=== PATIENT | female | born 1960 | race African-American/Black ===

== ENCOUNTER 2016-03-14 21:27 | Emergency (ER) | payer OTHER ==
[~2016-03-14] VITALS: Ht 160 cm; Wt 86.5 kg
[~2016-03-14 21:27] MED LIST: ASPI-535 PO; CHLO25TA13 PO; CYCL-319 PO; FAMO-18 PO; HYDR-3498 PO; IBUP800T25 PO; SUCR1TAB56 PO
[2016-03-14 21:32] VITALS: Ht 160 cm; Wt 86.5 kg
[2016-03-14] MEDS ORDERED: ONDANSETRON 4 MG INJ IV STA (23:55)
[2016-03-14] MEDS ORDERED: SOD CHLORIDE 0.9% 1,000 ML IV STA (23:55)
[2016-03-14] MEDS ORDERED: morphine 2 MG INJ IV STA (23:55)
[2016-03-15 00:36] LABS: BASOPHILS % 0.4 % (0.0-2.0); EOSINOPHILS # 0.3 10^3/ul (0.0-0.5); HEMATOCRIT 38.6 % (37.0-47.0); LYMPHOCYTES # 2.3 10^3/ul (0.8-2.9); LYMPHOCYTES % 34.9 % (15.0-51.0); MEAN CORPUSCULAR HEMOGLOBIN 29.9 pg (29.0-33.0); MEAN CORPUSCULAR HGB CONC 33.6 g/dl (32.0-37.0); MEAN PLATELET VOLUME 7.7 fl (7.4-10.4); MONOCYTE # 0.5 10^3/ul (0.3-0.9); MONOCYTES % 7.4 % (0.0-11.0); NEUTROPHIL # 3.5 10^3/ul (1.6-7.5); NEUTROPHILS % 53.3 % (39.0-77.0); PLATELET COUNT 251 10^3/UL (140-440); RED BLOOD COUNT 4.34 10^6/ul (4.20-5.40); RED CELL DISTRIBUTION WIDTH 14.3 % (11.5-14.5); UNCORRECTED WBC 6.6 10^3/ul (4.8-10.8); WHITE BLOOD COUNT 6.6 10^3/ul (4.8-10.8)
[2016-03-15 00:38] LABS: INR 0.91; PROTIME 12.3 Sec (12.2-14.2)
[2016-03-15 00:39] LABS: PARTIAL THROMBOPLASTIN TIME 24.1 Sec (25.0-35.0)
[2016-03-15] MEDS ORDERED: ACETAMINOPHEN 500 MG TAB PO STA (00:51)
--- NOTE | 2016-03-15 01:00 | RADRPT ---
PROCEDURE: Chest. CLINICAL INDICATION: Chest pain. TECHNIQUE: Single frontal view of the chest was obtained. COMPARISON: 12/27/2014. FINDINGS: The cardiac silhouette is within normal limits. The aortic arch is unremarkable. There is no focal consolidation, vascular congestion or pleural effusion. There is no pneumothorax. IMPRESSION: No evidence for active cardiopulmonary disease. .Adair Perez MD, Date Time Electronically viewed and signed by .Adair Perez MD, on 03/15/2016 01:00 .T/
[2016-03-15 01:01] LABS: CHLORIDE 102 mmol/L (97-110); SODIUM 147 mmol/L (135-144)
[2016-03-15 01:02] LABS: POTASSIUM 3.7 mmol/L (3.5-5.1)
[2016-03-15 01:04] LABS: ALANINE AMINOTRANSFERASE 43 IU/L (13-69); ALBUMIN/GLOBULIN RATIO 1.29; ALKALINE PHOSPHATASE 88 IU/L (42-121); ANION GAP 19 (8-16); ASPARTATE AMINO TRANSFERASE 26 IU/L (15-46); BILIRUBIN,INDIRECT 0.1 mg/dl (0-1.1); BILIRUBIN,TOTAL 0.1 mg/dl (0.2-1.3); BLOOD UREA NITROGEN 21 mg/dl (7-20); CARBON DIOXIDE 30 mmol/L (21-31); CREATININE 0.69 mg/dl (0.44-1.00); GLUCOSE 123 mg/dl (70-220); TOTAL PROTEIN 7.1 g/dl (6.1-8.1)
[2016-03-15 01:05] LABS: CALCIUM 9.1 mg/dl (8.4-10.2)
[2016-03-15 01:13] LABS: B-TYPE NATRIURETIC PEPTIDE 21 PG/ML (0-125); CONDITION 1
[2016-03-15 01:19] LABS: TROPONIN-I < 0.010 ng/ml (0.00-0.12)
[2016-03-15 01:28] LABS: ADD UMIC NO; URINE BILIRUBIN (Dip) NEGATIVE (NEGATIVE); URINE BLOOD (Dip) NEGATIVE (NEGATIVE); URINE COLOR LT. YELLOW (YELLOW); URINE GLUCOSE (Dip) NEGATIVE (NEGATIVE); URINE KETONES (Dip) NEGATIVE (NEGATIVE); URINE LEUKOCYTE ESTERASE (Dip) NEGATIVE (NEGATIVE); URINE NITRITE (Dip) NEGATIVE (NEGATIVE); URINE TOTAL PROTEIN (Dip) NEGATIVE (NEGATIVE); URINE UROBILINOGEN (Dip) 0.2 E.U./dL (0.1-1.0)
[2016-03-15] MEDS ORDERED: ALBUTEROL 0.5% (NEB) 2.5 MG/0.5 ML AMP HHN STA (01:39)
[2016-03-15] MEDS ORDERED: IPRATROPIUM (NEB) 0.5 MG/2.5 ML AMP HHN ONE (02:00)
[2016-03-15 02:42] VITALS: TEMP 98.2
[2016-03-15] MEDS ORDERED: DICLOFENAC SODIUM 37.5 MG/ML VIAL IV STA (03:06)
[2016-03-15] MEDS ORDERED: NAPR-688 PO (03:52)
[2016-03-15] MEDS ORDERED: AMOX500T PO (03:52)
[2016-03-15] MEDS ORDERED: AZIT500T5 PO (03:52)
[2016-03-15 04:11] VITALS: BP 133/70; PULSE 73; RESP 18
--- NOTE | 2016-03-15 04:13 | ERD ---
ER Documentation Chief Complaint Date/Time DATE: 03/15/16 TIME: 04:00 Chief Complaint sob, dizzy, abd pain, swelling x 1 day, no respiratory distress noted HPI This 55-year-old female presented for cough, shortness of breath with the cough , mild generalized crampy abdominal pain, bilateral forearm swelling. Dissolving going on for the last 3 days. She has had chills at home as well. Denies chest pain. Currently does not feel short of breath. No nausea or vomiting. ROS All systems reviewed and are negative except as per history of present illness. Medications Home Meds Active Scripts Amoxicillin Trihydrate (Amoxicillin) 500 Mg Tablet, 500 MG PO Q8, #30 TAB Prov:MADHUJOHANMARLENE DO 03/15/16 Naproxen* (Naproxen*) 500 Mg Tablet, 500 MG PO BID, #14 TAB Prov:MADHUMARLENE DO 03/15/16 Azithromycin* (Azithromycin*) 500 Mg Tablet, 500 MG PO DAILY, #3 TAB Prov:MARLENE LEUNG DO 03/15/16 Cyclobenzaprine Hcl* (Cyclobenzaprine Hcl*) 10 Mg Tablet, 15 MG PO TID, #15 TAB Prov:ANGEL LUIS LOPEZC 03/31/15 Ibuprofen* (Motrin*) 800 Mg Tab, 800 MG PO Q6H Y for PAIN AND OR ELEVATED TEMP, #30 TAB Prov:ANGEL LUIS LOPEZC 03/31/15 Hydrocodone Bit-Acetaminophen* ([place]*) 5-325 Mg Tab, 1 TAB PO Q4H Y for PAIN, # 20 TAB Prov:ANGEL LUIS LOPEZC 03/31/15 Sucralfate* (Carafate*) 1 Gm Tab, 1 GM PO AC MEALS AND BEDTIME for 10 Days, TAB Prov:CHELLY HOLT 12/27/14 Famotidine* (Pepcid*) 20 Mg Tablet, 20 MG PO BID for 4 Days, TAB Prov:CHELLY HOLT 12/27/14 Reported Medications Aspirin Ec (Aspir 81) 81 Mg Tablet.dr, 81 MG PO DAILY, TAB 12/27/14 Chlorthalidone* (Chlorthalidone*) 25 Mg Tablet, 25 MG PO DAILY, TAB 12/27/14 Allergies Allergies: Coded Allergies: No Known Allergy (Verified , 03/31/15) PMhx/Soc Medical and Surgical Hx: pt denies Medical Hx, pt denies Surgical Hx History of Surgery: No Anesthesia Reaction: No Hx Neurological Disorder: No Hx Respiratory Disorders: No Hx Cardiac Disorders: No Hx Psychiatric Problems: No Hx Miscellaneous Medical Probl: Yes (DVT) Hx Alcohol Use: No Hx Substance Use: No Hx Tobacco Use: No Smoking Status: Never smoker Physical Exam Vitals Vital Signs Date Time Temp Pulse Resp B/P Pulse Ox O2 Delivery O2 Flow Rate FiO2 03/15/16 02:42 98.2 70 20 140/70 99 Room Air 03/15/16 02:02 98.6 68 20 148/64 99 Room Air 03/15/16 01:45 78 20 98 21 03/14/16 23:54 98.1 80 18 124/78 98 Room Air 03/14/16 21:32 98.1 91 18 179/106 98 Physical Exam Const: [] No distress Head: Atraumatic Eyes: Normal Conjunctiva ENT: Normal External Ears, Nose and Mouth. Neck: Full range of motion..~ No meningismus. Resp: Clear to auscultation bilaterally, mild cough on exam Cardio: Regular rate and rhythm, no murmurs Abd: Soft, non tender, non distended. Normal bowel sounds Skin: No petechiae or rashes Back: No midline or flank tenderness Ext: No cyanosis, or edema, mild soft symmetrical bilateral forearm edema. No lower extremity edema Neur: Awake and alert and oriented 3, no focal deficits Psych: Normal Mood and Affect Result Diagram: 03/14/16 0019 03/14/16 0019 Results 24 hrs Laboratory Tests Test 03/14/16 00:19 03/15/16 00:10 Activated Partial Thromboplast Time 24.1Sec Alanine Aminotransferase (ALT/SGPT) 43IU/L Albumin 4.0g/dl Albumin/Globulin Ratio 1.29 Alkaline Phosphatase 88IU/L Anion Gap 19 Aspartate Amino Transf (AST/SGOT) 26IU/L B-Type Natriuretic Peptide 21PG/ML Basophils # 0.010^3/ul Basophils % 0.4% Blood Urea Nitrogen 21mg/dl Calcium Level 9.1mg/dl Carbon Dioxide Level 30mmol/L Chloride Level 102mmol/L Creatinine 0.69mg/dl Direct Bilirubin 0.00mg/dl Eosinophils # 0.310^3/ul Eosinophils % 4.0% Globulin 3.10g/dl Glucose Level 123mg/dl Hematocrit 38.6% Hemoglobin 13.0g/dl INR International Normalized Ratio 0.91 Indirect Bilirubin 0.1mg/dl Lactic Acid Level 1.2mmol/L Lipase 404U/L Lymphocytes # 2.310^3/ul Lymphocytes % 34.9% Mean Corpuscular Hemoglobin 29.9pg Mean Corpuscular Hemoglobin Concent 33.6g/dl Mean Corpuscular Volume 89.0fl Mean Platelet Volume 7.7fl Monocytes # 0.510^3/ul Monocytes % 7.4% Neutrophils # 3.510^3/ul Neutrophils % 53.3% Nucleated Red Blood Cells # 0.010^3/ul Nucleated Red Blood Cells % 0.0/100WBC Platelet Count 75742^3/UL Potassium Level 3.7mmol/L Prothrombin Time 12.3Sec Prothrombin Time Ratio 1.0 Red Blood Count 4.3410^6/ul Red Cell Distribution Width 14.3% Sodium Level 147mmol/L Total Bilirubin 0.1mg/dl Total Protein 7.1g/dl Troponin I < 0.010ng/ml White Blood Count 6.610^3/ul Urine Bilirubin NEGATIVE Urine Clarity SLIGHTLY CLOUDY Urine Color LT. YELLOW Urine Glucose NEGATIVE% Urine Hemoglobin NEGATIVE Urine Ketones NEGATIVE Urine Leukocyte Esterase NEGATIVE Urine Nitrite NEGATIVE Urine Specific [place] 1.020 Urine Total Protein NEGATIVE Urine Urobilinogen 0.2 E.U./dL Urine pH 7.0 Current Medications Medications (Trade) Dose Ordered Sig/Natividad Route PRN Reason Start Time Stop Time Status Last Admin Dose Admin Sodium Chloride (NS) 1,000 ml @ 1,000 mls/hr Q1H STAT IV 03/14/16 23:55 03/15/16 00:54 DC 03/15/16 00:43 Morphine Sulfate (morphine) 2 mg ONCE STAT IV 03/14/16 23:55 03/14/16 23:58 DC 03/15/16 00:43 Ondansetron HCl (Zofran Inj) 4 mg ONCE STAT IV 03/14/16 23:55 03/14/16 23:58 DC 03/15/16 00:42 Acetaminophen (Tylenol Tab) 1,000 mg ONCE STAT PO 03/15/16 00:51 03/15/16 00:52 DC 03/15/16 00:59 Albuterol (Proventil 0.5% (Neb)) 5 mg ONCE STAT HHN 03/15/16 01:39 03/15/16 01:43 DC 03/15/16 01:45 Ipratropium [place] (Atrovent 0.02% (Neb)) 0.5 mg ONCE ONCE HHN 03/15/16 02:00 03/15/16 02:01 DC 03/15/16 01:45 Diclofenac Sodium (Dyloject) 37.5 mg ONCE STAT IV 03/15/16 03:06 03/15/16 03:07 DC 03/15/16 03:16 Procedures/MDM Patient has symptoms consistent with the influenza-like illness. Her test is negative. She does have cough and although her white blood cell count is completely normal and her vital signs are normal she states that she did have shortness of breath with his cough. Her lungs were completely clear but she requested an albuterol Atrovent breathing treatment was given such. She said that this helped with her symptoms greatly. He is also given Dilaudid checked which helped her a lot. Her pain was markedly decreased she had a benign abdominal exam in the ER. He has a mildly elevated lipase with no right upper quadrant pain or left upper quadrant pain. She was given a liter of normal saline. No signs of acute coronary syndrome is patient has negative troponin and nonischemic EKG. No signs of congestive heart failure with clear lungs and a BNP is low. Is a well-appearing patient with no signs of dehydration. Admitted discharge her with amoxicillin, naproxen, and primary care follow up the next 2-3 days return precautions were given. EKG interpretation: Normal sinus rhythm rate of 79, indeterminate axis, no ST-T wave changes concerning for acute ischemia, normal intervals, normal EKG property assessment monitor interpretation: No sinus rhythm without arrhythmia Chest x-ray interpretation: No acute process, no infiltrate no widened mediastinum no pneumothorax, no fractures. Departure Diagnosis: Primary Impression: Abdominal pain Additional Impressions: URI, acute Bronchitis Condition: Stable Patient Instructions: Bronchitis, Antiobiotic Treatment (Adult) Additional Instructions: Call your primary care doctor TOMORROW for an appointment during the next 2-3 days.See the doctor sooner or return here if your condition worsens before your appointment time. MARLENE LEUNG DO Mar 15, 2016 04:13
== END 2016-03-15 04:12 | disposition home or self-care (01) ==
LOC: E/R 21:27
DX: R10.9 Unspecified abdominal pain (principal); J06.9 Acute upper respiratory infection, unspecified; J20.9 Acute bronchitis, unspecified
CPT/HCPCS: 36415; 71010; 80053; 81003; 83605; 83690; 83880; 84484; 85025; 85610; 85730; 87400; 93005; 94664; 96374; 96375; J2270; J2405; J7030; Z7502; Z7610

== ENCOUNTER 2016-08-02 19:21 | Emergency (ER) | payer OTHER ==
[~2016-08-02] VITALS: Ht 149.9 cm; Wt 80.0 kg
[~2016-08-02 19:21] MED LIST changes: +AMOX500T PO; +AZIT500T5 PO; +NAPR-688 PO
[2016-08-02 19:29] VITALS: Ht 149.9 cm; Wt 80.0 kg
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
[2016-08-02] MEDS ORDERED: IBUP-1542 PO (20:39)
[2016-08-02 20:52] VITALS: BP 151/95; PULSE 95; RESP 18
== END 2016-08-02 21:29 | disposition home or self-care (01) ==
LOC: E/R 19:21
DX: R07.89 Other chest pain (principal); I10 Essential (primary) hypertension; Z79.82 Long term (current) use of aspirin

== ENCOUNTER 2018-04-28 15:37 | Emergency (ER) | payer OTHER ==
[~2018-04-28] VITALS: Wt 83.7 kg
[~2018-04-28 15:37] MED LIST changes: -CHLO25TA13 PO; +CHLO25TA2 PO; -CYCL-319 PO; +CYCL10TA7 PO; -FAMO-18 PO; +FAMO-96 PO; +IBUP-1542 PO; -IBUP800T25 PO; +IBUP800T48 PO
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
[2018-04-28] MEDS ORDERED: IPRATROPIUM (NEB) 0.5 MG/2.5 ML AMP INH STA (18:23)
[2018-04-28] MEDS ORDERED: ALBUTEROL 0.083% (NEB) 2.5 MG/3 ML AMP INH STA (18:23)
[2018-04-28] MEDS ORDERED: SIMV20TA PO (19:30)
[2018-04-28] MEDS ORDERED: FLUO20CA38 PO (19:30)
[2018-04-28] MEDS ORDERED: GABA100C14 PO (19:34)
[2018-04-28] MEDS ORDERED: ALBU18HF INHALATION ×2 (19:34→20:28)
[2018-04-28] MEDS ORDERED: OMEP20CA16 PO (19:34)
[2018-04-28] MEDS ORDERED: BEN50 PO (19:34)
[2018-04-28] MEDS ORDERED: ASPI-1046 PO (19:35)
[2018-04-28] MEDS ORDERED: LOSA25TA12 PO (19:35)
[2018-04-28] MEDS ORDERED: PRED20TA PO (20:28)
[2018-04-28] MEDS ORDERED: DEXAMETHASONE 10 MG/ML 1 ML INJ IV ONE (20:30)
[2018-04-28 20:48] VITALS: BP 151/108; PULSE 82; RESP 20
== END 2018-04-28 20:50 | disposition home or self-care (01) ==
LOC: FTE 15:37 → E/R 20:50
DX: J20.9 Acute bronchitis, unspecified (principal); I10 Essential (primary) hypertension; F17.210 Nicotine dependence, cigarettes, uncomplicated; J45.909 Unspecified asthma, uncomplicated; Z79.82 Long term (current) use of aspirin
CPT/HCPCS: 71045; 94664; 96374; J1100; Z7502; Z7610; 93005